=== PATIENT | female | born 1960 | race Caucasian/White ===

== ENCOUNTER 2019-07-17 11:40 | Day surgery (SDC) | payer MEDICARE, MEDICAID ==
[~2019-07-17] VITALS: Ht 157.5 cm; Wt 70.3 kg
[~2019-07-17 11:40] MED LIST: DULA1.5P SQ; ESOM40CA PO; EZET10TA13 PO; INSNOV SUBCUT; INSU200I4 SQ; LEVO88TA2 PO; LISI-648 PO; PITA4TAB2 PO; SITA1TAB6 MT; WELC PO
[2019-07-17] MEDS ORDERED: LACTATED RINGERS 1,000 ML IV SCH (12:20)
[2019-07-17] MEDS ORDERED: GENTAMICIN SULF 40MG/ML 2ML VIAL ONE (12:29)
[2019-07-17] MEDS ORDERED: TRIAMCINOLONE ACETONIDE 40MG/ML 1ML VIAL ONE (14:59)
[2019-07-17] MEDS ORDERED: BACITRACIN 50,000 UNITS/VIAL ONE (15:00)
[2019-07-17] MEDS ORDERED: LIDOCAINE HCL 1% 20ML VIAL (Pyxis) INJ ONE (15:00)
[2019-07-17] MEDS ORDERED: BUPIVACAINE HCL/PF 0.5% (5MG/ML) 10ML ONE (15:00)
[2019-07-17] MEDS ORDERED: HYDROMORPHONE HCL/PF 2MG/ML CPJ IV PRN (16:15)
[2019-07-17] MEDS ORDERED: ONDANSETRON HCL 4MG/2ML INJ IV PRN (16:15)
== END 2019-07-17 17:35 | disposition home or self-care (01) ==
LOC: OR 11:40
PROVIDERS: ATTEND Podiatrist Foot & Ankle Surgery
DX: M79.672 Pain in left foot (principal); M79.2 Neuralgia and neuritis, unspecified; M89.9 Disorder of bone, unspecified; I10 Essential (primary) hypertension; E11.9 Type 2 diabetes mellitus without complications; E03.9 Hypothyroidism, unspecified; K21.9 Gastro-esophageal reflux disease without esophagitis; F32.9 Major depressive disorder, single episode, unspecified; Z98.890 Other specified postprocedural states; Z79.899 Other long term (current) drug therapy; Z79.4 Long term (current) use of insulin; Z88.8 Allergy status to other drugs, medicaments and biological substances
CPT/HCPCS: 28122; 64708; 73630; 82962; J3301; J3490; J1580